=== PATIENT | male | born 1980 | race African-American/Black ===

== ENCOUNTER 2018-02-12 19:05 | Emergency (ER) | payer OTHER ==
[~2018-02-12] VITALS: Ht 188 cm; Wt 119.2 kg
[2018-02-12 20:18] LABS: BASOPHIL (%) 0.2 % (0-1); EOSINOPHIL (%) 1.7 % (0-5); EOSINOPHIL COUNT 0.1 K/uL (0-0.3); HEMATOCRIT 22.2 % (38.0-50.0); HEMOGLOBIN 7.1 G/DL (12.5-16.6); IMMATURE GRANULOCYTE (%) 0.2 % (0.0-0.7); LYMPHOCYTE (%) 33.9 % (15-42); LYMPHOCYTE COUNT 1.6 K/uL (1.0-2.8); MCH 30.2 PG (29.0-34.0); MCV 94.5 FL (86-99); MONOCYTE (%) 7.6 % (3-12); MONOCYTE COUNT 0.4 K/uL (0-0.8); NEUTROPHIL (%) 56.4 % (45-76); NEUTROPHIL COUNT 2.7 K/uL (1.8-6.4); PLATELET COUNT 195 K/uL (156-360); RBC DIS.WIDTH-CV 13.7 % (11.8-14.6); RBC DIS.WIDTH-SD 47.1 % (39-53); RED BLOOD COUNT 2.35 M/uL (4.00-5.50); WHITE BLOOD COUNT 4.8 K/uL (4.1-10.2)
[2018-02-12 20:30] LABS: ALBUMIN 2.8 g/dL (3.2-4.8); CHLORIDE 116 mEq/L (99-109); POTASSIUM 5.2 mEq/L (3.7-5.4); SODIUM 138 mEq/L (136-147)
[2018-02-12 20:31] LABS: MAGNESIUM 1.9 mg/dL (1.3-2.7)
[2018-02-12 20:32] LABS: APPEARANCE CLEAR ((CLEAR)); BILIRUBIN NEGATIVE; BLOOD NEGATIVE; COLOR YELLOW ((YELLOW)); GLUCOSE (STRIP) 150; KETONES NEGATIVE; LEUKOCYTES NEGATIVE; NITRITE NEGATIVE; PROTEIN (STRIP) >=500; SPECIFIC GRAVITY 1.018 (1.000-1.030); UROBILINOGEN 0.2 MG/DL (0.2-1.0)
[2018-02-12 20:33] LABS: GLUCOSE 153 mg/dL (70-99)
[2018-02-12 20:35] LABS: TOTAL BILIRUBIN 0.1 mg/dL (0.0-1.0)
[2018-02-12 20:36] LABS: ALKALINE PHOSPHATASE 139 IU/L (3-129); PHOSPHORUS 4.6 mg/dL (2.5-4.9)
[2018-02-12 20:37] LABS: CREATININE 6.3 mg/dL (0.6-1.3); GFR ESTIMATE (CALCULATED) 13 mL/min/ (58.99-99999)
[2018-02-12 20:38] LABS: AST (GOT) 14 IU/L (2-34); UREA NITROGEN (BUN) 60 mg/dL (9-23)
[2018-02-12 20:40] LABS: ALT (GPT) 23 IU/L (3-49)
[2018-02-12 20:44] LABS: BACTERIA NONE SEEN /HPF; EPITHELIAL CELLS NONE SEEN /HPF; MUCUS NONE SEEN /LPF; RED BLOOD CELLS 0-5 /HPF (0-5); WHITE BLOOD CELLS 0-5 /HPF (0-5)
[2018-02-12] MEDS ORDERED: NABI650T PO (21:38)
[2018-02-12] MEDS ORDERED: ELIPHOS667 MG PO (21:43)
[2018-02-12 22:02] VITALS: BP 144/89
== END 2018-02-12 22:06 ==
LOC: EME → EDBD 19:05 → EME 22:06
PROVIDERS: Emergency Medicine
DX: E11.22 Type 2 diabetes mellitus with diabetic chronic kidney disease (principal); I12.9 Hypertensive chronic kidney disease with stage 1 through stage 4 chronic kidney disease, or unspecified chronic kidney disease; N18.4 Chronic kidney disease, stage 4 (severe); J45.909 Unspecified asthma, uncomplicated; R56.9 Unspecified convulsions
CPT/HCPCS: 80053; 81003; 83735; 84100; 85025; 99281; 99285

== ENCOUNTER 2018-02-20 19:30 | Emergency (ER) | payer OTHER ==
[~2018-02-20] VITALS: Ht 185.4 cm; Wt 120.8 kg
[~2018-02-20 19:30] MED LIST: ELIPHOS667 MG PO; NABI650T PO
[2018-02-20 21:12] LABS: HEMOGLOBIN 7.5 G/DL (12.5-16.6); MCH 30.4 PG (29.0-34.0); MCHC 32.6 G/DL (30.0-36.0); MCV 93.1 FL (86-99); PLATELET COUNT 201 K/uL (156-360); RBC DIS.WIDTH-CV 14.3 % (11.8-14.6); RBC DIS.WIDTH-SD 47.5 % (39-53); RED BLOOD COUNT 2.47 M/uL (4.00-5.50); WHITE BLOOD COUNT 4.2 K/uL (4.1-10.2)
[2018-02-20 21:31] LABS: CHLORIDE 113 mEq/L (99-109); POTASSIUM 4.9 mEq/L (3.7-5.4); SODIUM 139 mEq/L (136-147)
[2018-02-20 21:32] LABS: GLUCOSE 193 mg/dL (70-99)
[2018-02-20 21:36] LABS: CREATININE 6.5 mg/dL (0.6-1.3); GFR ESTIMATE (CALCULATED) 12 mL/min/ (58.99-99999)
[2018-02-20 21:37] LABS: UREA NITROGEN (BUN) 52 mg/dL (9-23)
[2018-02-20 21:41] LABS: TROP-I INTERPRETATION NEGATIVE; TROPONIN-I 0.02 ng/mL (0.0-0.30)
[2018-02-21 01:07] VITALS: BP 153/84
== END 2018-02-21 01:05 | disposition short-term general hospital (02) ==
LOC: EME → EDBD 19:30 → EME 19:30
PROVIDERS: Emergency Medicine
DX: R07.9 Chest pain, unspecified (principal); J45.909 Unspecified asthma, uncomplicated; E11.9 Type 2 diabetes mellitus without complications; I10 Essential (primary) hypertension
CPT/HCPCS: 71046; 80048; 84484; 85027; 93005; 99281; 99285